=== PATIENT | male | born 1950 | race Caucasian/White ===

== ENCOUNTER 2019-10-28 15:29 | Emergency (ER) | payer MEDICARE, SELFPAY ==
--- NOTE | 2019-10-28 15:32 | ED_ITS ---
Entered by Selma Pitts, acting as scribe for Luanne Cartagena HPI - Extremity Injury (Upper) General: Chief Complaint: Extremity Injury, Upper Stated Complaint: LEFT SHOULDER PAIN Time Seen by Provider: 10/28/19 15:33 Source: patient and RN notes reviewed Mode of arrival: ambulatory Limitations: no limitations History of Present Illness: HPI narrative: 69 yo male presents to ED after falling while he was [place]. He said when he fell, he caught himself with his L arm extended. The patient has probable dislocation of his L shoulder. MD complaint: injury to: left and shoulder Onset (ago): hour(s) (2 (5416)) Other Extremity Injury: Left: shoulder (fell while walking in [place], caught himself with L arm extended) Other injuries: none Handedness: right Place: outdoors Severity: severe Relieving factors: none Exacerbating factors: none Context: fall Associated symptoms: Denies neck pain or weakness in extremities Treatments prior to arrival: other (arm immobilization) Review of Systems General: Reports: other (negative unless marked) Const: Denies: fever, chills, body aches, fatigue, malaise or diaphoresis Eyes: Denies: change in vision or blurry vision ENMT: Denies: throat pain, painful swallowing, hoarseness, ear pain, ear discharge, Change in hearing or nasal discharge Card: Denies: chest pain, palpitations, irregular heart rhythm, syncope, pre- syncope, shortness of breath on exertion or shortness of breath when lying down Resp: Denies: shortness of breath, productive cough, non-productive cough, wheezing, coughing up blood or chest congestion GI: Denies: abdominal pain, nausea, vomiting, vomiting blood, coffee grounds in vomit, diarrhea, constipation, cramping, blood in stool or black tarry stool : Denies: flank pain, difficulty urinating, painful urination, urinary frequency, urinary urgency, decreased urine ouput, urinary incontinence or blood in urine Musc: Denies: neck pain, back pain, extremity pain, extremity swelling, joint warmth or joint stiffness Skin/Breast: Denies: rash, skin tenderness or yellow skin Neuro: Denies: headache, numbness in extremities, weakness in extremities, changes in sensation, lack of coordination, difficulty walking, dizziness, vertigo or confusion Endo: Denies: excessive thirst, tired all the time, cold intolerance, excessive sweating, flushing or hot flashes Dean/Lymph: Denies: easy bruising, easy bleeding, petechiae or enlarged lymph nodes All/Imm: Denies: hives, throat swelling, tongue swelling, facial swelling or acute wheezing PFSH ED PFSH: Social History Smoking and tobacco status: never smoked Physical Exam Const: COMMON NORMALS: oriented x3, no limitations, healthy appearing and well nourished EXAM LIMITATIONS: no altered mental status GENERAL APPEARANCE: cooperative, well kempt and well developed ORIENTATION/CONSCIOUSNESS: Yes awake HENMT: COMMON NORMALS: normocephalic, head/scalp atraumatic, hearing grossly normal bilaterally, external ears normal, EAC's normal, external nose normal and moist oral mucous membranes HEAD & SCALP: normal to inspection, normocephalic and atraumatic FACE & SINUS: normal facial exam and face symmetric NOSE: external nose normal and nares normal EXTERNAL EAR: Yes external ears normal EXTERNAL AUDITORY CANAL: EAC's normal MOUTH: oral and palatal mucosa normal and tongue normal Eye: COMMON NORMALS: PERRL, EOMs intact bilaterally, conjunctivae normal and no scleral icterus GENERAL EYE: normal appearance of both eyes and normal light reflex CONJUNCTIVA: Yes conjunctivae normal SCLERA: sclerae normal CORNEA: Yes corneas normal PUPIL: Yes PERRL DIRECT OPHTHALMOSCOPY: Yes normal light reflex Neck/C-Spine: COMMON NORMALS: full ROM, no lymphadenopathy, supple, no meningeal signs and no JVD GENERAL: Yes normal visual inspection and Yes trachea midline CERVICAL SPINE: Yes cervical ROM normal Chest: COMMONS NORMALS: inspection of chest normal and palpation of chest normal Resp: COMMON NORMALS: normal respiratory effort, no retractions, no use of accessory muscles and clear to auscultation bilaterally EFFORT & INSPECTION: Yes able to speak in complete sentences AUSCULTATION: clear to auscultation bilaterally Cardio: COMMON NORMALS: no JVD, regular rhythm, S1 normal heart sound, S2 normal heart sound, no gallops, no clicks, no murmurs and no rub JUGULAR VENOUS DISTENTION: no JVD RATE: tachycardic RHYTHM: regular rhythm HEART SOUNDS: S1 normal and S2 normal GI: COMMON NORMALS: soft to palpation, non-tender, no hepatosplenomegaly and no masses INSPECTION: Yes normal to inspection PALPATION: Yes soft and Yes no hepatosplenomegaly : COMMON NORMALS: Yes no CVA tenderness BLADDER/KIDNEY EXAM: Yes no CVA tenderness Back/Pelvis: COMMON NORMALS: no CVA tenderness, thoracic and lumbar spine normal to inspection, no thoracic nor lumbar tenderness and thoraco-lumbar ROM normal Extremity: COMMON NORMALS: normal capillary refill, no joint enlargement, no clubbing, cyanosis or edema and no calf tenderness NARRATIVE EXTREMITY EXAM: Left Upper Extremity with decreased ROM and shortened consistent with dislocation neurovascularly intact distal. Neuro: COMMON NORMALS: oriented x3, CN's II-XII intact bilaterally, moves all extremities, no focal motor deficits and no sensory deficits noted MENINGEAL SIGNS: Yes no meningeal signs Psych: COMMON NORMALS: mental status grossly normal, thought process normal, cooperative, affect normal, speech normal and activity/motor behavior normal APPEARANCE: Yes well kempt SPEECH: Yes normal speech THOUGHT PROCESS: normal thought process Skin: COMMON NORMALS: no rashes or lesions noted, skin turgor normal, no jaundice, no petechiae and no mottling GENERAL SKIN EXAM: no rashes or lesions noted and turgor normal Procedures Orthopedic Joint Reduction Joint #1: Time Out Performed: Yes Side: left Joint Reduction Location: shoulder Shoulder Technique Used (if applicable): external rotation Post-reduction neuro exam: intact Post-reduction vascular: intact Post Reduction X-Ray Obtained: Yes Post Reduction X-Ray Results: reduced Splint Applied: Yes Patient Tolerated Procedure: well and no complications Procedural Sedation Indication: fracture/dislocation reduction ASA Class: I Preparation: monitoring engineer applied, pulse oximeter, supplemental O2 applied, suction/airway equipment at bedside and IV secured IV Propofol dose (mg): 125 Patient Tolerated Procedure: well and no complications Course Vital Signs: Vital signs: Vital Signs Pulse Rate 94 10/28/19 17:46 Respiratory Rate 18 10/28/19 17:46 Blood Pressure 161/96 10/28/19 17:46 Pulse Oximetry 100 10/28/19 17:46 MDM - Extremity Injury (Upper) MDM Narrative: Medical decision making narrative: The patient tolerated the procedure well with no complications. Patient will be referred to orthopedics. Patient had no questions or concerns and agreed with this treatment and follow- up plan. He denies any other injuries to his head, neck or otherwise. Imaging Data^: Xray Ortho: Radiologist's impression: [facility] [address] [place] [address] XRay Report Signed Patient: Govind Santos #: [id number] : 8Acct#:[id number] Age/Sex: 69 / MADM Date: 10/28/19 Loc: ERRoom/Bed: Attending Dr: Ordering Provider/Ordering MD: Luanne Cartagena DO Date of Service: 10/28/19 Procedure(s): XR shoulder LT min 2V* [id number] Accession Number(s): [id number] Report Number: [id number] WS: [id number] Left shoulder, 2 views, 10/28/2019 Clinical Data: injury Comparison: None. Findings: There is an anterior subcoracoid dislocation of the left humeral head from the glenoid fossa. No fractures are seen. The AC joint is intact. XR/XR shoulder LT min 2V* [id number] Impression: Left anterior subcoracoid dislocation of the shoulder. Dictated By:Gertrudis Morales MD Signed By:Gertrudis Morales MDSigned Date/Time:10/28/19 1624 DD/ Discharge Plan Discharge Patient Disposition: Home, Self-Care Clinical Impression: Dislocation of shoulder region Qualifiers: Encounter type: initial encounter Laterality: left Qualified Code(s): S43.005A - Unspecified dislocation of left shoulder joint, initial encounter Condition: Stable Prescriptions: [place] 5-325 mg tablet 1 tab PO Q6H PRN (Reason: pain) 5 Days Qty: 10 RF: 0 No Action ibuprofen 200 mg Tablet 1,000 mg PO PRN RF: 0 Vitamin C 6 g PO DAILY RF: 0 Vitamin D3 1 cap PO DAILY RF: 0 magnesium 1 tab PO DAILY RF: 0 Discharge Orders: Discharge Order (Routine); Ordered 10/28/19 Ordered By: Luanne Cartagena Referrals: Arias Lucero MD [Physician] - 1-3 days Discharge Diet: Advance as tolerated Discharge Activity: Increase activity as tolerated Patient Instructions: Shoulder Dislocation (ED) Activity Restrictions/Additional Instructions: Please return to the ER immediately for any of the signs or symptoms listed on your discharge instruction sheets, worsening/changing of your symptoms, you are not getting better as quickly as expected, or for ANY other cause or concerns. Be certain to follow-up with Dr. Lucero and use your shoulder immobilizer at all times until seen by him. Discharge Date/Time: 10/28/19 18:06 Coding Level of Care Code ED Help Desk Engineer for Chg Fwd Exam Comprehensive The documentation recorded by the Hong velasquez Valerie R, accurately reflects the service I personally performed and the decisions made by me, Luanne Cartagena Oct 28, 2019 15:29
[2019-10-28 15:34] VITALS: BP 199/104; PULSE 97; RESP 20; O2SAT 100; BMI 27.1
--- NOTE | 2019-10-28 15:34 | XR_ITS ---
WS: [id number] Left shoulder, 2 views, 10/28/2019 Clinical Data: injury Comparison: None. Findings: There is an anterior subcoracoid dislocation of the left humeral head from the glenoid fossa. No frac tures are seen. The AC joint is intact. XR/XR shoulder LT min 2V* [id number] Impression: Left anterior subcoracoid dislocation of the shoulder.
[2019-10-28 15:43] VITALS: RESP 22; O2SAT 97
[2019-10-28] MEDS: morphine 4 mg/mL SDV 1 mL 5 MG IVP (15:43)
[2019-10-28] MEDS: ondansetron 2 mg/ML SDV 2 mL 4 MG IVP (15:43)
[2019-10-28] MEDS: sodium chloride 0.9% 500 ML 999 ML IV (15:44)
[2019-10-28 15:45] VITALS: PULSE 135
[2019-10-28 16:24] VITALS: BP 115/76; PULSE 88; RESP 16; O2SAT 95
--- NOTE | 2019-10-28 16:29 | XR_ITS ---
WS: [id number] Left shoulder, 3 views, 10/28/2019 Clinical Data: post reduction Comparison: Left shoulder, today, 1621 hours. Findings: The left humeral head has been relocated and is now in good position. 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 XR/XR shoulder LT min 2V* [id number] Impression: Relocation of left shoulder dislocation.
[2019-10-28] MEDS: propofol 10 mg/mL SDV 20 mL 200 MG IVP (16:42)
[2019-10-28 17:46] VITALS: BP 161/96; PULSE 94; RESP 18; O2SAT 100
--- NOTE | 2019-10-29 12:36 | DCPLANNER ---
digital manager had message to schedule a follow up appointment for patient with ortho. digital manager called the ortho clinic, spoke with Pat, gave clinic patients information. digital manager was told that patients information would be printed and reviewed. Clinic will call corrections caseworker and patient with appointment information.
--- NOTE | 2019-11-02 10:46 | DCPLANNER ---
Patient has a follow up appointment scheduled for October at 2:[address] Lucero. Clinic will call patient with appointment information.
--- NOTE | 2019-11-12 09:23 | DCPLANNER ---
Patient attended appointment scheduled for 11.04.19 with ortho.
== END 2019-10-28 18:06 | disposition home or self-care (01) ==
PROVIDERS: Emergency Provider Emergency Medicine
DX: S43.015A Anterior dislocation of left humerus, initial encounter (principal); W19.XXXA Unspecified fall, initial encounter; Y92.89 Other specified places as the place of occurrence of the external cause
CPT/HCPCS: 12345; 23650; 73030; 96374; 96375; 99282; 99284; J2270; J2405; J2704; J7040

== ENCOUNTER → 2019-11-09 08:06 | Outpatient (BNVA) | payer MEDICARE, SELFPAY | PROVIDERS: Referring Provider Emergency Medicine; Visit Provider Orthopaedic Surgery | DX: S43.005A Unspecified dislocation of left shoulder joint, initial encounter (principal); X58.XXXA Exposure to other specified factors, initial encounter | CPT/HCPCS: 73030 ==

== ENCOUNTER 2019-11-16 06:00 | Outpatient (RCR) | payer MEDICARE, SELFPAY | END 2019-11-16 23:59 | disposition home or self-care (01) | LOC: MPT 06:00 | PROVIDERS: Referring Provider Orthopaedic Surgery; Visit Provider Orthopaedic Surgery | DX: S43.005D Unspecified dislocation of left shoulder joint, subsequent encounter (principal); X58.XXXD Exposure to other specified factors, subsequent encounter | CPT/HCPCS: 97110; 97161 ==

== ENCOUNTER 2019-11-17 06:00 | Outpatient (RCR) | payer MEDICARE, SELFPAY | END 2019-12-16 23:59 | disposition home or self-care (01) | LOC: MPT 06:00 | PROVIDERS: Referring Provider Orthopaedic Surgery; Visit Provider Orthopaedic Surgery | DX: Z47.89 Encounter for other orthopedic aftercare (principal); S43.005D Unspecified dislocation of left shoulder joint, subsequent encounter; X58.XXXD Exposure to other specified factors, subsequent encounter | CPT/HCPCS: 97110; 97140 ==

== ENCOUNTER → 2022-02-25 18:17 | Outpatient (BNVA) | payer MEDICARE, SELFPAY | PROVIDERS: Visit Provider Emergency Medicine | DX: J02.9 Acute pharyngitis, unspecified (principal) | CPT/HCPCS: 87071; 87880 ==

== ENCOUNTER 2023-05-21 11:30 | Emergency (ER) | payer MEDICARE, SELFPAY ==
[2023-05-21 12:06] VITALS: BP 149/81; PULSE 74; RESP 16; TEMP 36.7; O2SAT 97
--- NOTE | 2023-05-21 13:08 | W.ED.NAVMDI ---
HPI - Nausea/Vomiting/Diarrhea General: Chief complaint: Nausea/Vomiting/Diarrhea Stated complaint: severe diarrhea Time Seen by Provider: 05/21/23 12:38 Source: patient Mode of arrival: ambulatory Limitations: no limitations History of Present Illness: Patient is a very nice 73-year-old male who presents to ED today with complaint of diarrhea. He states approximately 4 to 5 days ago he had a fever as high as 101. He states the following day he began having diarrhea. No fevers since. He states diarrhea is watery and will have a loose stool approximately every 3-4 hours. He states that he defecates almost immediately after eating anything. Recently he reports that diarrhea started to turn green. He is not having any vomiting. He denies abdominal pain or cramping. Patient states he is concerned for Giardia [place] and algae levels high. MD elicited complaint: diarrhea Onset (ago): day(s) Description of diarrhea: watery Associated nausea: No Associated abdominal pain: No Location of pain: None Exacerbating factors: eating Relieving factors: none Associated symtoms: Reports no associated symptoms; Denies chest pain, dysuria, fatigue, headache(s), malaise or nausea Review of Systems Const: Reports: fever(s) (several days ago-none since); Denies: chills, body aches, fatigue or malaise Card: Denies: chest pain Resp: Denies: dyspnea GI: Reports: diarrhea; Denies: abdominal pain, nausea, vomiting, hematemesis, pain on defecation, rectal pain, rectal swelling, rectal itching, hematochezia, melena or mucus in stool : Denies: flank pain, difficulty urinating, dysuria, urinary frequency, urinary urgency or urinary hesitancy Musc: Denies: neck pain, back pain, extremity pain, extremity swelling or joint pain Skin/Breast: Denies: rash Neuro: Denies: headache(s), numbness in extremities, weakness in extremities or sensory changes ON LICENSE OF [facility] ED PFSH: Social History Smoking and tobacco status: never smoked Alcohol intake: never Substance/Drug Use: never Physical Exam Const: COMMON NORMALS: no acute distress, average body habitus, patient oriented x3, no limitations, healthy appearing, alert and well nourished HENMT: COMMON NORMALS: normocephalic and atraumatic HEAD & SCALP: normal to inspection, normocephalic and atraumatic Eye: COMMON NORMALS: no scleral icterus Neck/C-Spine: COMMON NORMALS: full ROM, no lymphadenopathy, supple and no meningeal signs Resp: COMMON NORMALS: normal respiratory effort and clear to auscultation bilaterally AUSCULTATION: clear to auscultation bilaterally Cardio: COMMON NORMALS: regular rate and regular rhythm RATE: regular rate RHYTHM: regular rhythm GI: COMMON NORMALS: Normal to inspection, nondistended, normoactive bowel sounds present, Soft to palpation, non-tender, No hepatosplenomegaly present and no masses PALPATION: Yes Soft to palpation and Yes No hepatosplenomegaly present : COMMON NORMALS: Yes no CVA tenderness BLADDER/KIDNEY EXAM: Yes no CVA tenderness Back/Pelvis: COMMON NORMALS: no CVA tenderness Extremity: COMMON NORMALS: normal to inspection GENERAL: Yes normal exam except as noted Neuro: ERMELINDA COMA SCALE: document GCS findings Simpson coma scale eye opening: Spontaneous Simpson coma scale verbal response: Orientated Simpson coma scale motor response: Obey commands Simpson coma scale total score: 15 COMMON NORMALS: patient oriented x3, moves all extremities, no focal motor deficits and no sensory deficits noted SENSORIUM/ORIENTATION: Yes alert MENINGEAL SIGNS: Yes no meningeal signs Skin: COMMON NORMALS: no rashes or lesions noted GENERAL SKIN EXAM: no rashes or lesions noted Course Vital Signs: Vital signs: Vital Signs Temperature 98.0 F 05/21/23 12:06 Pulse Rate 74 05/21/23 12:06 Respiratory Rate 16 05/21/23 12:06 Blood Pressure 149/81 05/21/23 12:06 Pulse Oximetry 97 05/21/23 12:06 Oxygen Delivery Me thod Room Air 05/21/23 12:06 MDM - Nausea/Vomiting/Diarrhea Medical Decision Making Patient here for diarrhea over the past several days. He is reporting approximately 3-5 loose stools in a 24-hour period. He is not having any abdominal pain. He arrives in no acute distress with stable vital signs. His white count is normal. He has very minor elevations in his kidney functions with a BUN/Cr of 30/1.3. He was given a liter of fluids here. At this time I think it is reasonable to hold off on any initiation of treatment and await stool culture results. He states he will contact [facility] in [place] to set up follow up appointment. Strict return ED precautions given. Lab Data 05/21/23 13:24 05/21/23 13:24 Laboratory Results WBC 6.31 10^3/uL (3.29-11.43) 05/21/23 13:24 RBC 4.78 10^6/uL (3.85-5.65) 05/21/23 13:24 Hgb 14.30 g/dL (11.27-16.99) 05/21/23 13:24 Hct 40.8 % (37-53) 05/21/23 13:24 MCV 85.4 fl (82-101) 05/21/23 13:24 MCH 29.9 pg (27-33) 05/21/23 13:24 MCHC 35.0 g/dL (30-55) 05/21/23 13:24 RDW 12.9 % (12.1-15.1) 05/21/23 13:24 Plt Count 174 10^3/cmm (157-399) 05/21/23 13:24 MPV 10.2 fL (7.4-10.4) 05/21/23 13:24 Neut % (Auto) 74.9 % 05/21/23 13:24 Lymph % (Auto) 16.2 % 05/21/23 13:24 [place] % (Auto) 7.9 % 05/21/23 13:24 Eos % (Auto) 0.2 % 05/21/23 13:24 Baso % (Auto) 0.3 % 05/21/23 13:24 Neut # (Auto) 4.73 10^3/uL (1.8-7.7) 05/21/23 13:24 Lymph # (Auto) 1.0 10^3/uL (0.8-4.8) 05/21/23 13:24 [place] # (Auto) 0.5 10^3/uL (0.2-0.9) 05/21/23 13:24 Eos # (Auto) 0.0 10^3/uL (0.0-0.8) 05/21/23 13:24 Baso # (Auto) 0.0 10^3/uL (0.0-0.1) 05/21/23 13:24 Nucleated RBC % (auto) 0 % 05/21/23 13:24 Nucleated RBCs # 0.0 /100WBC 05/21/23 13:24 Sodium 136 mmol/L (136-145) 05/21/23 13:24 Potassium 3.4 mmol/L (3.5-5.1) L 05/21/23 13:24 Chloride 98 mmol/L (98-107) 05/21/23 13:24 Carbon Dioxide 27 mmol/L (22-29) 05/21/23 13:24 Anion Gap 14.4 (5-19) 05/21/23 13:24 BUN 30 mg/dL (8-23) H 05/21/23 13:24 Creatinine 1.3 mg/dL (0.7-1.2) H 05/21/23 13:24 GFR Calculation Not Reportable 05/21/23 13:24 Glucose 111 mg/dL (65-115) 05/21/23 13:24 Calculated Osmolality 289 mOsm/kg (285-295) 05/21/23 13:24 Calcium 8.8 mg/dL (8.5-10.5) 05/21/23 13:24 Total Bilirubin 0.5 mg/dL (0.15-1.2) 05/21/23 13:24 AST 17 U/L (0-40) 05/21/23 13:24 ALT 16 U/L (0-41) 05/21/23 13:24 Alkaline Phosphatase 62 U/L (40-130) 05/21/23 13:24 Total Protein 6.8 g/dL (6.6-8.7) 05/21/23 13:24 Albumin 3.5 g/dL (3.5-5.2) 05/21/23 13:24 Globulin 3.3 g/dL (1.3-4.6) 05/21/23 13:24 Lipase 19 U/L (13-60) 05/21/23 13:24 No radiology studies performed this visit Discharge Plan Discharge Patient Disposition: Home Clinical Impression: Diarrhea Qualifiers: Diarrhea type: presumed infectious Qualified Code(s): R19.7 - Diarrhea, unspecified Condition: Stable Prescriptions: No Action Vitamin C 1,000 mg Tablet 3,000 mg PO BID Vitamin D3 125 mcg (5,000 unit) Tablet 5,000 unit PO BID lutein 40 mg Capsule 40 mg PO QAM Rx Instructions: administer with meals magnesium oxide 400 mg magnesium Tablet 400 mg PO BID vitamin K2 100 mcg Capsule 100 mcg PO QAM Discharge Orders: Discharge ED (Routine); Ordered 05/21/23 Ordered By: Faith Gipson Patient Instructions: Acute Diarrhea (ED) Activity Restrictions/Additional Instructions: As we discussed we will await the results of your stool samples. If you have not heard results in the next 48 to 72 hours please contact us. As we discussed over like you to follow-up with your primary care provider later this week/early next week for reevaluation. You need to return to the emergency department for development of abdominal pain, fevers, generally feeling worse or unwell, worsening diarrhea, lack of urine output or very dark urine, or any other concerns you may have. Continue to push fluids is much as possible as we discussed. I hope you begin to feel better soon. Coding Level of Care Code ED Assistant Portfolio Manager for Alfredo Alcantara
[2023-05-21 13:33] LABS: Basophils % 0.3 %; Eosinophils % 0.2 %; Hematocrit 40.8 % (37-53); Lymphocytes % 16.2 %; Mean Corpuscular Hemoglobin 29.9 pg (27-33); Mean Corpuscular Volume 85.4 fl (82-101); Mean Platelet Volume 10.2 fL (7.4-10.4); Monocytes # 0.5 10^3/uL (0.2-0.9); Monocytes % 7.9 %; Neutrophils # 4.73 10^3/uL (1.8-7.7); Neutrophils % 74.9 %; Nucleated Red Blood Cells % 0 %; Platelet Count 174 10^3/cmm (157-399); Red Blood Count 4.78 10^6/uL (3.85-5.65); Red Cell Distribution Width 12.9 % (12.1-15.1); White Blood Count 6.31 10^3/uL (3.29-11.43)
[2023-05-21] MEDS: sodium chloride 0.9% 1,000 ML 999 ML IV (13:46)
[2023-05-21 14:02] LABS: Alanine Aminotransferase 16 U/L (0-41); Albumin Level 3.5 g/dL (3.5-5.2); Alkaline Phosphatase 62 U/L (40-130); Anion Gap 14.4 (5-19); Aspartate Amino Transferase 17 U/L (0-40); Blood Urea Nitrogen 30 mg/dL (8-23); Calcium 8.8 mg/dL (8.5-10.5); Carbon Dioxide 27 mmol/L (22-29); Chloride 98 mmol/L (98-107); Globulin 3.3 g/dL (1.3-4.6); Glucose 111 mg/dL (65-115); Lipase 19 U/L (13-60); Osmolality Calculated 289 mOsm/kg (285-295); Potassium 3.4 mmol/L (3.5-5.1); Sodium 136 mmol/L (136-145); Total Bilirubin 0.5 mg/dL (0.15-1.2); Total Protein 6.8 g/dL (6.6-8.7)
[2023-05-21 15:05] LABS: Add Urine Microscopic? YES; Bilirubin Urine Neg (Negative); Blood Urine 3+ (Negative); Glucose Urine UA Norm (Normal); Ketones Urine 1+ (Negative); Leukocyte Esterase Urine Negative (Negative); Nitrate Urine Negative (Negative); Protein Urine 1+ (Negative); Urine Appearance Hazy (CLEAR); Urine Color Amber (Yellow); Urobilinogen Urine Norm (Negative); pH Urine 5 (5-7)
[2023-05-21 15:42] LABS: Amorphous Sediment Urine 1+ /hpf; Bacteria Urine TRACE /hpf; Mucus Urine 3+ /hpf; Squamous Epithelial Cell Urine 0-4 /hpf (0-5); WBC Urine 0-4 /hpf (0-5)
[2023-05-21 15:43] LABS: Add Urine Culture? No
== END 2023-05-21 15:26 | disposition home or self-care (01) ==
PROVIDERS: Emergency Provider Physician Assistant
DX: R19.7 Diarrhea, unspecified (principal)
CPT/HCPCS: 36415; 80053; 81001; 82274; 83630; 83690; 85025; 87045; 87177; 87209; 87324; 87427; 87449; 96360; 99284; J7030